=== PATIENT | male | born 1955 | race African-American/Black ===

== ENCOUNTER 2025-07-09 17:53 | Emergency (ER) | payer SELFPAY ==
[~2025-07-09] VITALS: Ht 172.7 cm; Wt 91.0 kg
[2025-07-09 18:00] VITALS: O2SAT 99
[2025-07-10 01:37] VITALS: BP 119/73; PULSE 113; RESP 18; TEMP 37.2; O2SAT 99
== END 2025-07-10 01:46 | disposition home or self-care (01) ==
LOC: ER 17:53
DX: F10.129 Alcohol abuse with intoxication, unspecified (principal); Y90.9 Presence of alcohol in blood, level not specified
CPT/HCPCS: 99283